=== PATIENT | female | born 1960 | race Caucasian/White ===

== ENCOUNTER 2017-09-13 23:33 | Emergency (ER) | payer OTHER ==
[~2017-09-13] VITALS: Ht 149.9 cm; Wt 63.5 kg
[~2017-09-13 23:33] MED LIST: CEPHALEXIN PO; PERCOCET 5-3251 EACH PO
[2017-09-14] MEDS ORDERED: PENICILLIN V P500 MG PO (01:02)
[2017-09-14] MEDS ORDERED: AMITRIPTYLINE H25 M2 PO (01:02)
[2017-09-14 01:07] VITALS: BP 177/111
== END 2017-09-14 01:07 | disposition home or self-care (01) ==
LOC: M.ERS 23:33
DX: R53.83 Other fatigue (principal); F17.210 Nicotine dependence, cigarettes, uncomplicated